=== PATIENT | female | born 2000 | race Caucasian/White ===

== ENCOUNTER 2024-02-08 14:25 | Emergency (ER) | payer OTHER ==
[~2024-02-08] VITALS: Ht 175.3 cm; Wt 62.1 kg
[2024-02-08] MEDS: IV NS 0.9% 1,000 ML BAG IV ONE (15:29)
[2024-02-08 15:37] LABS: APPEARANCE,URINE SLIGHTLY CLOUDY (CLEAR); BILIRUBIN,URINE NEGATIVE (NEGATIVE); BLOOD, URINE TRACE Ery/uL (NEGATIVE); COLOR,URINE YELLOW (YELLOW); KETONES,URINE NEGATIVE (NEGATIVE); LEUKOCYTE ESTERASE ,URINE 1+ (NEGATIVE); NITRITE, URINE NEGATIVE (NEGATIVE); PROTEIN,URINE NEGATIVE (NEGATIVE); UGLUCOSE NEGATIVE (NEGATIVE); UROBILINOGEN,URINE 0.2 EU/dL (0.2)
[2024-02-08 16:10] LABS: PREGNANCY TEST URINE QUAL NEGATIVE (NEGATIVE)
[2024-02-08 16:12] LABS: ADD URINE CULTURE YES; BACTERIA,URINE 3+ /HPF (None Seen)
[2024-02-08] MEDS ORDERED: NITR100C6 PO (16:45)
[2024-02-08] MEDS ORDERED: IBUP-1955 PO (16:45)
[2024-02-08 17:29] VITALS: BP 110/80; TEMP 98; O2SAT 99
== END 2024-02-08 17:30 | disposition home or self-care (01) ==
LOC: ER 14:32
DX: N39.0 Urinary tract infection, site not specified (principal); N83.202 Unspecified ovarian cyst, left side
CPT/HCPCS: 99284; 76856; 87086; 84703; 81001; J7030